=== PATIENT | male | born 1985 | race Caucasian/White ===

== ENCOUNTER 2021-12-12 14:19 | Emergency (ER) | payer BC ==
[~2021-12-12] VITALS: Ht 180.3 cm; Wt 86.2 kg
[2021-12-12] MEDS ORDERED: ATHLETIC FOOT C30 GM T (14:58)
== END 2021-12-12 15:07 | disposition home or self-care (01) ==
LOC: ED 14:19
DX: B35.3 Tinea pedis (principal)

== ENCOUNTER 2023-11-27 09:49 | Emergency (ER) | payer BC ==
[~2023-11-27] VITALS: Ht 180.3 cm; Wt 83.9 kg
[~2023-11-27 09:49] MED LIST: ATHLETIC FOOT C30 GM T
[2023-11-27] MEDS ORDERED: IBUPROFEN 800 MG TAB PO ONE (10:05)
[2023-11-27] MEDS ORDERED: MELOXICAM15 MG PO (11:07)
== END 2023-11-27 11:28 | disposition home or self-care (01) ==
LOC: ED 09:49
DX: S62.326A Displaced fracture of shaft of fifth metacarpal bone, right hand, initial encounter for closed fracture (principal); Z88.8 Allergy status to other drugs, medicaments and biological substances; W19.XXXA Unspecified fall, initial encounter; Y93.89 Activity, other specified; Y92.009 Unspecified place in unspecified non-institutional (private) residence as the place of occurrence of the external cause; Y99.8 Other external cause status

== ENCOUNTER 2025-01-01 16:28 | Emergency (ER) | payer BC ==
[~2025-01-01] VITALS: Ht 180.3 cm; Wt 86.2 kg
[~2025-01-01 16:28] MED LIST changes: +MELOXICAM15 MG PO
[2025-01-01] MEDS ORDERED: SUBOXONE 8 MG-1 EACH BC (16:44)
[2025-01-01] MEDS ORDERED: BUSPAR5 MG PO (16:45)
[2025-01-01] MEDS ORDERED: ZOLOFT100 MG PO (16:45)
[2025-01-01] MEDS ORDERED: BUPRENORPHINE HCL/NALOXONE 8 MG-2 MG SL TABLET SL ONE (17:05)
== END 2025-01-01 17:08 | disposition home or self-care (01) ==
LOC: ED 16:28
DX: F11.10 Opioid abuse, uncomplicated (principal); Z76.0 Encounter for issue of repeat prescription; Z79.899 Other long term (current) drug therapy